=== PATIENT | female | born 1930 | race Two or more races ===

== ENCOUNTER 2017-12-04 12:43 | Observation (INO) | payer MEDICARE, MEDICAID ==
[2017-12-04] VITALS (10 sets, daily range): BP systolic 131–173; BP diastolic 50–85
[~2017-12-04] VITALS: Ht 167.6 cm; Wt 95.9 kg
[~2017-12-04 12:43] MED LIST: ACET-812 PO; ASPI-611 PO; CARB1TAB44 PO; DILT180C66 PO; DOCU100C63 PO; FURO40TA4 PO; GABA-532 PO; LEVO200T8 PO; MELA1TAB17 PO; METF500T PO; MULT-1085 PO; MUPI22OI30 TP; NITR0.4T51 SL; OMEG-79 PO; PANT40TA4 PO; POTA8TAB8 PO; PRAV20TA4 PO; SERT100T PO
[2017-12-04 13:49] LABS: BASOPHILS % (AUTO) 0.4 % (0-1); EOSINOPHILS # (AUTO) 0.1 X10'3 (0-0.9); EOSINOPHILS % (AUTO) 2.6 % (0-6); LYMPHOCYTES # (AUTO) 1.1 X10'3 (1.1-4.8); LYMPHOCYTES % (AUTO) 20.5 % (21-51); MEAN CORPUSCULAR HEMOGLOBIN 21.5 PG (27.0-31.0); MEAN CORPUSCULAR HGB CONC 29.8 % (33.0-36.5); MEAN CORPUSCULAR VOLUME 72.2 FL (78-98); MEAN PLATELET VOLUME 9.1 FL (7.4-10.4); MONOCYTES # (AUTO) 0.5 X10'3 (0-0.9); MONOCYTES % (AUTO) 9.2 % (2-12); NEUTROPHILS # (AUTO) 3.7 X10'3 (1.8-7.7); NEUTROPHILS % (AUTO) 67.3 % (42-75); PLATELET COUNT 185 X10'3 (140-440); RED BLOOD COUNT 2.92 X10'6 (4.20-5.60); RED CELL DISTRIBUTION WIDTH 20.3 % (11.5-14.5); WHITE BLOOD COUNT 5.5 X10'3 (4.5-11.0)
[2017-12-04 13:53] LABS: HEMATOCRIT 21.1 % (35.0-45.0); HEMOGLOBIN 6.3 g/dl (12.0-16.0)
[2017-12-04 14:00] LABS: PARTIAL THROMBOPLASTIN TIME 24 SECONDS (22-32); PROTHROMBIN TIME 10.2 SECONDS (9.0-12.0)
[2017-12-04 14:04] LABS: ANISOCYTOSIS 2+; ELLIPTOCYTES 1+; HYPOCHROMASIA 2+; MICROCYTOSIS 1+; PLATELET ESTIMATE NORMAL; POIKILOCYTOSIS 1+; POLYCHROMASIA 1+
[2017-12-04 14:05] LABS: ALANINE AMINOTRANSFERASE 14 U/L (12-78); ALBUMIN 3.5 G/DL (3.4-5.0); ALKALINE PHOSPHATASE 70 IU/L (46-116); ANION GAP 11 (8-16); ASPARTATE AMINO TRANSFERASE 12 U/L (10-37); BILIRUBIN,TOTAL 0.5 MG/DL (0.1-1.0); BLOOD UREA NITROGEN 22 MG/DL (7-18); BUN/CREATININE RATIO 20.2 (6.6-38.0); CALCIUM 9.1 MG/DL (8.5-10.1); CHLORIDE 105 MMOL/L (99-107); CREATININE 1.09 MG/DL (0.40-0.90); GLUCOSE 86 MG/DL (70-104); POTASSIUM 3.9 MMOL/L (3.5-5.1); SODIUM 143 MMOL/L (135-145); TEAR DROP CELLS 1+; TOTAL PROTEIN 6.9 G/DL (6.4-8.2); eGFR 48 ML/MIN
[2017-12-04] MEDS ORDERED: dextrose 50%-water 50ml dispensing syringe IV PRN ×2 (15:45)
[2017-12-04] MEDS ORDERED: mag hydrox/Alum hydrox/simeth 30ml oral suspension PO PRN (15:45)
[2017-12-04] MEDS ORDERED: ipratropium/albuterol 3ml nebule NEB PRN (15:45)
[2017-12-04] MEDS ORDERED: potassium Cl 40MEQ/NS 500ml 500 ML IV PRN ×2 (15:45)
[2017-12-04] MEDS ORDERED: ondansetron/PF 4mg/2ml inj IV PRN (15:45)
[2017-12-04] MEDS ORDERED: magnesium 4gm in 100ml NS 100 ML IV PRN (15:45)
[2017-12-04] MEDS ORDERED: glucagon, human recombinant 1mg kit SUBCUT PRN (15:45)
[2017-12-04] MEDS ORDERED: acetaminophen 325mg tablet PO PRN (15:45)
[2017-12-04] MEDS ORDERED: magnesium 2GM in 50ml NS 50 ML IV PRN (15:45)
[2017-12-04] MEDS ORDERED: insulin Lispro (HumaLOG) vial - multi-dose SQ SCH (15:45)
[2017-12-04] MEDS ORDERED: nitroGLYCERIN 0.4mg SUBLingual tab SL PRN (15:45)
[2017-12-04] MEDS ORDERED: magnesium hydroxide 30ml (MOM) UD suspension PO PRN (15:45)
[2017-12-04] MEDS ORDERED: magnesium Cl slow-release 64mg tablet PO PRN (15:45)
[2017-12-04] MEDS ORDERED: dextrose ORAL solution 15 GM/59 ML bottle PO PRN ×2 (15:45)
[2017-12-04] MEDS ORDERED: MESSAGE TO PHARMACY PO ONE (15:45)
[2017-12-04] MEDS ORDERED: potassium Cl 20 mEq SR tablet PO PRN ×2 (15:45)
[2017-12-04] MEDS ORDERED: furosemide 20 MG/2 ML vial IV PRN (15:55)
[2017-12-04 16:32] LABS: CLARITY,URINE SLIGHTLY CLOUDY (Clear); COLOR,URINE STRAW (Yellow); GLUCOSE, URINE NEGATIVE (Neg); KETONES,URINE NEGATIVE (Neg); LEUKOCYTE ESTERASE ,URINE SMALL (Neg); NITRITES, URINE NEGATIVE (Neg); OCCULT BLOOD,URINE NEGATIVE (Neg); PROTEIN,URINE NEGATIVE (Neg); UROBILINOGEN,URINE 0.2 E.U/dL (0.2-1.0)
[2017-12-04 16:37] LABS: UA COLLECTION TYPE CLN CATCH MIDSTREAM
[2017-12-04 16:39] LABS: SQUAMOUS EPITHELIAL CELL,UR MANY /LPF (FEW)
[2017-12-04 16:40] LABS: MUCUS STRANDS FEW /LPF (Neg); TRANSITIONAL EPI CELLS,URINE FEW /HPF
[2017-12-04 16:41] LABS: BACTERIA,URINE 1+ /HPF (Neg); RBC,URINE NONE SEEN /HPF (0-2); WBC,URINE 0-4 /HPF (0-4)
[2017-12-04 16:53] LABS: OCCULT BLOOD STOOL NEGATIVE (Neg)
[2017-12-04 17:16] LABS: HEMOGLOBIN A1C 5.8 % (4.5-6.2)
[2017-12-04] MEDS ORDERED: carbidoba-levodopa 25-100mg tablet PO SCH (21:00)
[2017-12-04] MEDS ORDERED: insulin glargine (Lantus) pen - multi-dose SQ SCH (21:00)
[2017-12-04] MEDS ORDERED: atorvastatin 10mg tablet PO SCH (21:00)
[2017-12-04] MEDS: diltiazem 60mg tablet PO SCH (21:00)
[2017-12-05 02:18] LABS: BASOPHILS % (AUTO) 0.4 % (0-1); EOSINOPHILS # (AUTO) 0.1 X10'3 (0-0.9); EOSINOPHILS % (AUTO) 1.4 % (0-6); HEMOGLOBIN 7.9 g/dl (12.0-16.0); LYMPHOCYTES # (AUTO) 1.1 X10'3 (1.1-4.8); LYMPHOCYTES % (AUTO) 13.6 % (21-51); MEAN CORPUSCULAR HEMOGLOBIN 24.2 PG (27.0-31.0); MEAN CORPUSCULAR HGB CONC 31.8 % (33.0-36.5); MEAN CORPUSCULAR VOLUME 76.1 FL (78-98); MEAN PLATELET VOLUME 9.2 FL (7.4-10.4); MONOCYTES # (AUTO) 0.7 X10'3 (0-0.9); MONOCYTES % (AUTO) 8.7 % (2-12); NEUTROPHILS # (AUTO) 6.1 X10'3 (1.8-7.7); NEUTROPHILS % (AUTO) 75.9 % (42-75); PLATELET COUNT 158 X10'3 (140-440); RED BLOOD COUNT 3.28 X10'6 (4.20-5.60)
[2017-12-05 02:30] LABS: ALANINE AMINOTRANSFERASE 9 U/L (12-78); ALBUMIN 3.1 G/DL (3.4-5.0); ALKALINE PHOSPHATASE 64 IU/L (46-116); ANION GAP 7 (8-16); ASPARTATE AMINO TRANSFERASE 15 U/L (10-37); BILIRUBIN,TOTAL 0.7 MG/DL (0.1-1.0); BLOOD UREA NITROGEN 21 MG/DL (7-18); CHLORIDE 107 MMOL/L (99-107); GLUCOSE 99 MG/DL (70-104); POTASSIUM 3.8 MMOL/L (3.5-5.1); SODIUM 143 MMOL/L (135-145); TOTAL CARBON DIOXIDE 29.5 MMOL/L (24-32); TOTAL PROTEIN 6.2 G/DL (6.4-8.2); eGFR 53 ML/MIN
[2017-12-05 02:33] LABS: MAGNESIUM 2.2 MG/DL (1.5-2.4)
[2017-12-05 02:44] LABS: ANISOCYTOSIS 2+; ELLIPTOCYTES 1+; HYPOCHROMASIA 2+; MICROCYTOSIS 1+; POLYCHROMASIA 1+; TARGET CELLS 1+
[2017-12-05 03:00] VITALS: BP 157/74
[2017-12-05 04:51] LABS: PLATELET ESTIMATE NORMAL
[2017-12-05 06:00] VITALS: BP 150/57
[2017-12-05] MEDS ORDERED: levoTHYROXINE 175mcg tablet PO SCH (07:00)
[2017-12-05] MEDS ORDERED: pantoprazole 40mg Tablet.DR PO SCH (07:30)
[2017-12-05] MEDS ORDERED: K and/or MAG REPLACEMENT MC SCH (08:00)
[2017-12-05] MEDS ORDERED: sertraline 50mg tablet PO SCH (08:00)
[2017-12-05] MEDS ORDERED: potassium chloride 10mEq CAPSULE.SA PO SCH (08:00)
[2017-12-05] MEDS ORDERED: furosemide 20MG tablet PO ONE (08:00)
[2017-12-05] MEDS ORDERED: anastrozole 1 MG tablet PO SCH (08:00)
[2017-12-05] MEDS: diltiazem 60mg tablet PO SCH (08:00)
[2017-12-05 08:15] LABS: C DIFF ANTIGEN NEGATIVE (NEGATIVE); C DIFF SPECIMEN=DIARRHEA? ACCEPTABLE; C DIFFICILE TOXINS A&B NEGATIVE (Neg)
== END 2017-12-05 11:40 | disposition home or self-care (01) ==
LOC: ER 12:44 → ED HOLD 15:45 → PCU 3S 19:38
PROVIDERS: ADMIT Family Medicine; ATTEND Family Medicine
DX: D64.9 Anemia, unspecified (principal); E03.9 Hypothyroidism, unspecified; E78.5 Hyperlipidemia, unspecified; I25.10 Atherosclerotic heart disease of native coronary artery without angina pectoris; I11.0 Hypertensive heart disease with heart failure; I50.22 Chronic systolic (congestive) heart failure; E11.42 Type 2 diabetes mellitus with diabetic polyneuropathy; K59.00 Constipation, unspecified; J45.909 Unspecified asthma, uncomplicated; J44.9 Chronic obstructive pulmonary disease, unspecified; J18.9 Pneumonia, unspecified organism; Z85.3 Personal history of malignant neoplasm of breast; Z66 Do not resuscitate; Z92.21 Personal history of antineoplastic chemotherapy; Z92.3 Personal history of irradiation; Z95.1 Presence of aortocoronary bypass graft
CPT/HCPCS: 36415; 36430; 71045; 80053; 81001; 82272; 82948; 83036; 83735; 84484; 85025; 85610; 85730; 86885; 86900; 86901; 86920; 87070; 87324; 87449; 93005; 94760; 99285; G0378; J7030; P9016; J1815

== ENCOUNTER 2018-02-01 12:02 | Emergency (ER) | payer MEDICARE, MEDICAID ==
[~2018-02-01] VITALS: Ht 162.6 cm; Wt 97.0 kg
[2018-02-01 13:16] LABS: BASOPHILS % (AUTO) 0.5 % (0-1); EOSINOPHILS # (AUTO) 0.2 X10'3 (0-0.9); EOSINOPHILS % (AUTO) 3.5 % (0-6); HEMOGLOBIN 7.5 g/dl (12.0-16.0); LYMPHOCYTES # (AUTO) 1.1 X10'3 (1.1-4.8); LYMPHOCYTES % (AUTO) 23.4 % (21-51); MEAN CORPUSCULAR HEMOGLOBIN 24.4 PG (27.0-31.0); MEAN CORPUSCULAR HGB CONC 31.4 % (33.0-36.5); MEAN CORPUSCULAR VOLUME 77.9 FL (78-98); MEAN PLATELET VOLUME 8.9 FL (7.4-10.4); MONOCYTES # (AUTO) 0.4 X10'3 (0-0.9); MONOCYTES % (AUTO) 9.7 % (2-12); NEUTROPHILS # (AUTO) 2.9 X10'3 (1.8-7.7); NEUTROPHILS % (AUTO) 62.9 % (42-75); PLATELET COUNT 173 X10'3 (140-440); RED BLOOD COUNT 3.09 X10'6 (4.20-5.60); RED CELL DISTRIBUTION WIDTH 22.5 % (11.5-14.5); WHITE BLOOD COUNT 4.6 X10'3 (4.5-11.0)
[2018-02-01 13:25] LABS: % IRON SATURATION 4 % (11-46); IRON 18 UG/DL (49-151); TOTAL IRON BINDING CAPACITY 425 UG/DL (259-388)
[2018-02-01 13:27] LABS: ALANINE AMINOTRANSFERASE 19 U/L (12-78); ALBUMIN 3.2 G/DL (3.4-5.0); ALBUMIN/GLOBULIN RATIO 0.9 (1.1-1.5); ALKALINE PHOSPHATASE 81 IU/L (46-116); ANION GAP 7 (8-16); ASPARTATE AMINO TRANSFERASE 12 U/L (10-37); BILIRUBIN,TOTAL 0.4 MG/DL (0.1-1.0); BLOOD UREA NITROGEN 18 MG/DL (7-18); BUN/CREATININE RATIO 16.2 (6.6-38.0); CALCIUM 8.8 MG/DL (8.5-10.1); CHLORIDE 106 MMOL/L (99-107); CREATININE 1.11 MG/DL (0.40-0.90); GLUCOSE 94 MG/DL (70-104); POTASSIUM 3.5 MMOL/L (3.5-5.1); SODIUM 142 MMOL/L (135-145); TOTAL CARBON DIOXIDE 29.5 MMOL/L (24-32); TOTAL PROTEIN 6.6 G/DL (6.4-8.2); eGFR 47 ML/MIN
[2018-02-01 13:37] LABS: MAGNESIUM 1.8 MG/DL (1.5-2.4)
[2018-02-01 14:47] VITALS: BP 142/81
== END 2018-02-01 15:18 | disposition home or self-care (01) ==
LOC: ER 12:03
DX: D50.9 Iron deficiency anemia, unspecified (principal); G62.9 Polyneuropathy, unspecified; I10 Essential (primary) hypertension; J44.9 Chronic obstructive pulmonary disease, unspecified; I48.91 Unspecified atrial fibrillation; Z90.49 Acquired absence of other specified parts of digestive tract; Z85.3 Personal history of malignant neoplasm of breast; Z88.8 Allergy status to other drugs, medicaments and biological substances; Z88.5 Allergy status to narcotic agent; Z79.84 Long term (current) use of oral hypoglycemic drugs; Z79.899 Other long term (current) drug therapy
CPT/HCPCS: 36415; 71045; 80053; 83540; 83550; 83735; 84439; 84443; 84484; 85025; 86870; 86885; 86900; 86901; 86905; 93005; 99285